=== PATIENT | female | born 1980 | race Caucasian/White ===

== ENCOUNTER 2019-11-07 06:43 | Emergency (ER) | payer BC ==
[~2019-11-07] VITALS: Ht 162.6 cm; Wt 57.2 kg
[2019-11-07 06:52] VITALS: Ht 162.6 cm; Wt 57.2 kg
[2019-11-07 07:56] VITALS: BP 120/85
== END 2019-11-07 07:56 | disposition home or self-care (01) ==
LOC: ED 06:43
DX: F41.9 Anxiety disorder, unspecified (principal); F43.10 Post-traumatic stress disorder, unspecified

== ENCOUNTER 2020-03-28 02:40 | Emergency (ER) | payer BC ==
[~2020-03-28] VITALS: Ht 162.6 cm; Wt 61.2 kg
[2020-03-28 04:21] LABS: CALCIUM 8.9 mg/dL (8.5-10.1); CARBON DIOXIDE 25.6 mmol/L (21-32); CHLORIDE SERUM 104 mmol/L (98-107); CREATININE SERUM 0.7 mg/dL (0.6-1.0); GFR1 > 60 mL/min; GLUCOSE SERUM 92 mg/dL (74-106); POTASSIUM SERUM 3.7 mmol/L (3.5-5.1); SODIUM SERUM 137 mmol/L (136-145)
[2020-03-28 05:27] LABS: AMPHETAMINE QUAL UR NONE DETECTED (See below)
[2020-03-28 05:30] LABS: BASOPHIL % 0.4 % (0-2); PLATELET COUNT 330 x10^3mcL (130-400); RED CELL DISTRIBUTION WIDTH 12.6 % (11.5-14.5)
[2020-03-28 05:51] VITALS: BP 99/60
== END 2020-03-28 05:51 | disposition home or self-care (01) ==
LOC: ED 02:40
PROVIDERS: Emergency Medicine
DX: H93.13 Tinnitus, bilateral (principal); F31.9 Bipolar disorder, unspecified
CPT/HCPCS: 36415; G0480

== ENCOUNTER 2020-05-19 09:38 | Emergency (ER) | payer BC ==
[~2020-05-19] VITALS: Ht 165.1 cm; Wt 63.5 kg
[2020-05-19 09:45] VITALS: Ht 165.1 cm; Wt 63.5 kg
[2020-05-19 10:36] VITALS: BP 130/78
== END 2020-05-19 10:36 | disposition home or self-care (01) ==
LOC: ED 09:38
DX: F41.9 Anxiety disorder, unspecified (principal); R25.1 Tremor, unspecified

== ENCOUNTER 2020-06-15 08:27 | Inpatient (IN) | payer BC ==
[~2020-06-15] VITALS: Ht 165.1 cm; Wt 62.6 kg
--- NOTE | 2020-06-15 08:34 | NUR ---
ARRIVES TO ER BED 5 WITH HX OF ANXIETY. POSSIBLY TOOK FULL BOTTLE OF PROPRANOLOL. THEN GAGGED HERSELF AND VOMITED. TX WITH FELIX IN FIELD BY FIRE DEPARTMENT.
--- NOTE | 2020-06-15 08:40 | NUR ---
VIDAL KNOXABRAN STAMPING DIE TRY OUT WORKER HERE AND SPOKE WITH PT. SUBMITTED 5150 DOCUMENT TO NURSING STAFF AFTER WRITTEN. PT CONTINUES TO BE COOPERATIVE.
[2020-06-15 08:58] LABS: BASOPHIL % 0.8 % (0-2); PLATELET COUNT 288 x10^3mcL (130-400); RED CELL DISTRIBUTION WIDTH 12.9 % (11.5-14.5)
--- NOTE | 2020-06-15 09:16 | NUR ---
SAFETY DATA SHEET NUMBER [id number]
[2020-06-15] MEDS ORDERED: EFF75 PO (09:29)
[2020-06-15] MEDS ORDERED: BUS5 PO (09:30)
--- NOTE | 2020-06-15 09:31 | NUR ---
SPOKE WITH DR. IAIN SINHA (MEDICAL TOXICOLIGIST) AND WAS INFORMED OF SITUATION WITH PT AND THE INGESTION OF PROPRANOLOL. HE ALSO SPOKE WITH DR. DEL ROSARIO.
[2020-06-15 09:33] LABS: CALCIUM 8.9 mg/dL (8.5-10.1); CARBON DIOXIDE 28.3 mmol/L (21-32); CHLORIDE SERUM 103 mmol/L (98-107); CREATININE SERUM 0.7 mg/dL (0.6-1.0); GFR1 > 60 mL/min; GLUCOSE SERUM 104 mg/dL (74-106); SODIUM SERUM 138 mmol/L (136-145)
[2020-06-15 09:37] LABS: ALBUMIN 3.5 g/dL (3.4-5.0); ALKALINE PHOSPHATASE 41 U/L (46-116); ALT/SGPT 69 U/L (14-59); AST/SGOT 32 U/L (15-37); BILIRUBIN TOTAL 0.22 mg/dL (0.20-1.00); TOTAL PROTEIN, SERUM 7.1 g/dL (6.4-8.2)
[2020-06-15 09:44] LABS: UA SPECIFIC GRAVITY <=1.005 (1.005-1.035); microscopic required? YES; urine erythrocyte TRACE (NEGATIVE)
[2020-06-15 09:45] LABS: AMPHETAMINE QUAL UR NONE DETECTED (See below)
--- NOTE | 2020-06-15 10:04 | NUR ---
PT'S MOTHER (EZEQUIEL) PHONE CONTACT:
--- NOTE | 2020-06-15 10:22 | NUR ---
DR. GREENBERG AT BEDSIDE AND MEDICAL STUDENTS AT BEDSIDE, SPEAKING TO PATIENT.
--- NOTE | 2020-06-15 11:05 | NUR ---
WITH CONSENT FROM DR. DEL ROSARIO. PT ATE CRACKERS.
--- NOTE | 2020-06-15 11:30 | NUR ---
AMBULATED TO REST ROOM. VOIDED. GAIT STEADY.
--- NOTE | 2020-06-15 11:50 | NUR ---
PT. ADMITTED FROM ER VIA GURNEY, PT. S/P SUICIDE ATTEMPT ON PROPRANOLOL , STATES THAT SHE SWALLOWED ABOUT 40 TABS ( DOSAGE UNKNOWN) , PT. STATES SHE VOMITED ABOUT 5 TABS, PT. GIVEN ZOFRAN ON ROUTE TO ER VIA FIRE FIGHTERS ACCORDING TO RUI POND IN THE ER, PT. STATES THE ATTEMPT WAS DUE TO ANXIETY AND DEPRESSION CAUSED DUE HER INABILITY TO SEE HER TWIN BOYS, PT. STATES HER EX WHO HAS THE FULL CUSTODY OF CHILDREN FORBIDS HER KIDS FROM SEEING HER. PT. PRESENTS WITH STABLE VITAL SIGNS, NO S/S OF RESPUITORY DEPRESSION, DENIES ANY PAIN AT THE MOMENT, VERY COOPERATIVE AND ABLE TO ANSWER ALL QUESTIONS. WILL RESUME CARE AT THIS POINT
[2020-06-15 12:32] VITALS: BP 99/56
[2020-06-15 12:32] LABS: CHOLESTEROL/HDL RATIO 2.6
[2020-06-15 12:39] VITALS: BP 99/56
[2020-06-15 12:41] LABS: T3 TOTAL 1.12 ng/mL
[2020-06-15 13:00] LABS: FREE T4 1.29 ng/dL (0.76-1.46); FREE THYROXINE INDEX 3.5 ug/dL (1.4-4.5); T4(THYROXINE) 8.9 ug/dL (4.7-13.3)
[2020-06-15 13:33] LABS: CALCIUM 9.3 mg/dL (8.5-10.1); CARBON DIOXIDE 29.7 mmol/L (21-32); CHLORIDE SERUM 104 mmol/L (98-107); CREATININE SERUM 0.7 mg/dL (0.6-1.0); GFR1 > 60 mL/min; GLUCOSE SERUM 100 mg/dL (74-106); POTASSIUM SERUM 4.2 mmol/L (3.5-5.1); SODIUM SERUM 140 mmol/L (136-145)
--- NOTE | 2020-06-15 15:19 | NUR ---
SPOKE TO POISON CONTROL TO GIVE AN UPDATE ON PT. STATUS, VITALS WNL, NSR PT. CALM AND RESTING, PT. COOPERATIVE
[2020-06-15 17:21] LABS: CALCIUM 8.8 mg/dL (8.5-10.1); CARBON DIOXIDE 30.7 mmol/L (21-32); CHLORIDE SERUM 104 mmol/L (98-107); CREATININE SERUM 0.7 mg/dL (0.6-1.0); GFR1 > 60 mL/min; GLUCOSE SERUM 98 mg/dL (74-106); POTASSIUM SERUM 4.1 mmol/L (3.5-5.1); SODIUM SERUM 139 mmol/L (136-145)
--- NOTE | 2020-06-15 17:34 | NUR ---
VITAL BP 114/79, SPO2 89% RR 33 TEMP 97.9 DENIES PAIN
[2020-06-15 18:54] VITALS: Ht 165.1 cm; Wt 62.6 kg
--- NOTE | 2020-06-15 19:00 | NUR ---
RECEIVED REPORT FROM DEJAH CISNEROS. PT IN BED, AAOX4. PERRLA. RASS 0. NO S/S OF CARDIAC OR RESP DISTRESS. SB/NSR ON CARDIAC CONTINUOUS MONITOR. ON ROOM AIR. LUNG SOUNDS CLEAR THROUGHOUT LOBES. AFEBRILE. DENIES ANY PAIN. PULSES PALBABLE. ABLE TO BUCK. ABLE TO MAKE ALL NEEDS KNOWN AT THIS TIME. ABLE TO FOLLOW ALL COMMANDS. CONTINENT OF BOWEL AND BLADDER. BEDSIDE COMMODE PRESENT AT BEDSIDE. SKIN INTACT. CALL LIGHT WITHIN REACH. BED AT LOWEST POSITION. PLACED CLOSE TO NURSING STATION FOR CLOSE OBSERVATION. SAFETY MEASURES AND INTEGRITY MAINTAINED. WILL CONTINUE TO MONITOR.
[2020-06-15 21:09] LABS: CALCIUM 8.6 mg/dL (8.5-10.1); CARBON DIOXIDE 30.2 mmol/L (21-32); CHLORIDE SERUM 104 mmol/L (98-107); CREATININE SERUM 0.7 mg/dL (0.6-1.0); GFR1 > 60 mL/min; GLUCOSE SERUM 108 mg/dL (74-106); POTASSIUM SERUM 3.8 mmol/L (3.5-5.1); SODIUM SERUM 139 mmol/L (136-145)
--- NOTE | 2020-06-16 | NUR ---
PT STABLE. NO CHANGE FROM SHIFT ASSESSMENT. DENIES ANY PAIN AT THIS TIME. PERRLA. AFEBRILE. SLEEPING. SAFETY MEASURES AND INTEGRITY MAINTAINED. CALL LIGHT WITHIN REACH. WILL CONTINUE TO MONITOR.
--- NOTE | 2020-06-16 04:00 | NUR ---
PT STABLE. NO S/S OF DISTRESS. V/S STABLE. DENIES ANY PAIN. NO CHANGE FROM SHIFT ASSESSMENT. CALL LIGHT WITHIN REACH. BED AT LOWEST POSITION. SAFETY MEASURES AND INTEGRITY MAINTAINED. WILL CONTINUE TO MONITOR.
[2020-06-16 05:39] LABS: BASOPHIL % 0.7 % (0-2); PLATELET COUNT 280 x10^3mcL (130-400); RED CELL DISTRIBUTION WIDTH 13.1 % (11.5-14.5)
[2020-06-16 06:07] LABS: ALKALINE PHOSPHATASE 32 U/L (46-116); ALT/SGPT 50 U/L (14-59); AST/SGOT 18 U/L (15-37); BILIRUBIN TOTAL 0.2 mg/dL (0.20-1.00); CALCIUM 8.4 mg/dL (8.5-10.1); CARBON DIOXIDE 29.3 mmol/L (21-32); CHLORIDE SERUM 105 mmol/L (98-107); CREATININE SERUM 0.8 mg/dL (0.6-1.0); GFR1 > 60 mL/min; GLUCOSE SERUM 89 mg/dL (74-106); POTASSIUM SERUM 3.7 mmol/L (3.5-5.1); SODIUM SERUM 140 mmol/L (136-145); TOTAL PROTEIN, SERUM 6.6 g/dL (6.4-8.2)
[2020-06-16 06:09] LABS: ALBUMIN 3.2 g/dL (3.4-5.0)
--- NOTE | 2020-06-16 07:00 | NUR ---
REPORT GIVEN TO DEJAH CISNEROS FOR CONTINUITY OF CARE. LEFT PT IN STABLE CONDITION.
--- NOTE | 2020-06-16 07:15 | NUR ---
RECEIVED REPORT FROM NIGHT NURSE, PT. UNDER NO STRESS, VERY CALM AND COOPERATIVE, VITALS WNL, WILL RESUME PT. CARE
[2020-06-16 09:00] VITALS: BP 118/61
[2020-06-16 12:30] VITALS: BP 112/56
--- NOTE | 2020-06-16 15:12 | NUR ---
PT. FINISHING HER LUNCH, PT. REMAINS CALM, VERY COOPERATIVE, ANSWERS ALL QUESTIONS RELATED TO HER CARE, RIVASS
[2020-06-16 15:15] VITALS: BP 121/63
[2020-06-16 20:00] VITALS: BP 106/53
[2020-06-16 23:40] VITALS: BP 117/66
[2020-06-17] VITALS (14 sets, daily range): BP systolic 95–124; BP diastolic 45–82
--- NOTE | 2020-06-17 06:23 | NUR ---
PT. ALERT, CALM, AND IN BED. NO S/S OF ACUTE RESPIRATORY DISTRESS NOTED. DENIED ANY PAIN AT THIS MOMENT. COOPERATIVE AND ABLE TO ANSWERS ALL QUESTIONS. NO CHANGE FROM INITIAL SHIFT ASSESSMENT. BED AT LOWEST POSITION. CALL LIGHT WITHIN REACH. INTEGRITY MAINTAINED. WILL CONTINUE TO MONITOR.
[2020-06-17 06:29] LABS: BASOPHIL % 0.4 % (0-2); PLATELET COUNT 275 x10^3mcL (130-400); RED CELL DISTRIBUTION WIDTH 12.9 % (11.5-14.5)
[2020-06-17 07:32] LABS: CALCIUM 8.2 mg/dL (8.5-10.1); CARBON DIOXIDE 29.1 mmol/L (21-32); CHLORIDE SERUM 106 mmol/L (98-107); CREATININE SERUM 0.7 mg/dL (0.6-1.0); GFR1 > 60 mL/min; GLUCOSE SERUM 91 mg/dL (74-106); POTASSIUM SERUM 3.9 mmol/L (3.5-5.1); SODIUM SERUM 141 mmol/L (136-145)
--- NOTE | 2020-06-17 08:38 | NUR ---
PAGED DR HUGGINS AT THIS TIME, PATIENT STS THAT SHE HAS A LOT OF ANXIETY. WILL AWAIT CALL BACK AT THIS TIME AND CONTINUE TO MONITOR PATIENT.
--- NOTE | 2020-06-17 08:40 | NUR ---
DR HUGGINS NOTIFIED OF PATIENT ANXIETY WILL CARRY OUT ANY NEW ORDERS, AND INFORM PRIMARY RN.
--- NOTE | 2020-06-17 09:13 | NUR ---
MORNING ROUNDS WITH DR GREENBERG AND RESIDENTS. INFORMED OF PATIENT TRANSFER TO PSYCH FACILITY. PER DR GREENBERG HE IS AWARE, PATIENT NEEDS COVID RESULTS FIRST. WILL INFORM PRIMARY RN.
--- NOTE | 2020-06-17 09:30 | NUR ---
SPOKE WITH PAMELA, CRABBING MACHINE OPERATOR TO VERIFY ID COVID SWAB WAS RECEIVED, SHE STS IT IS NOT RECEIVED AND TO DO RESWAB. WILL INFORM PRIMARY RN AT THIS TIME AND CONTINUE TO MONITOR PATIENT.
--- NOTE | 2020-06-17 10:09 | NUR ---
Called facility and spoke with PJ to confirm intake has been received. Information has been fxed out to the following facilities for bed placement. [facility]/ [facility] Will keep facility updated with any information received
--- NOTE | 2020-06-17 10:11 | NUR ---
PATIENT RESWAB FOR COVID, AND SENT TO LAB AT THIS TIME.
--- NOTE | 2020-06-17 12:44 | NUR ---
PATIENT STS THAT SHE HAS A LOT OF ANXIETY AT THIS TIME. DR HUGGINS PAGED AT THIS TIME REGARDING PRN. PT STABLE AT THIS TIME, WILL CONTINUE TO MONITOR.
--- NOTE | 2020-06-17 14:06 | NUR ---
DR HUGGINS NOTIFIED OF PATIENTS ANXIETY AND PATIENT MEDICATED. PER DR HUGGINS HE WILL SEND OUT NEW ORDERS. WILL CARRY OUT AND INFORME PRIMARY RN.
--- NOTE | 2020-06-17 14:30 | NUR ---
PT VERY EMOTIONAL AND REQUEST FOR MEDS AND RN MIC TEXTED VENEER GRADER FOR PSYCHE MEDS AND PT VERBALIZED SUICIDAL IDEATIONS , PT UNDER CLOSED WATCH/ SURVEILANCE , ROOM CHECK FOR SHARP OBJECTS AND NO WEAPON , DENIES ANY HOMICIDAL IDEATION .
--- NOTE | 2020-06-17 16:45 | NUR ---
PSYCHIATRIST MD MARLON MUNGUIAREES HERE AT DEPT , SEEN AND SPOKE TO PT CONSULT.
--- NOTE | 2020-06-17 17:22 | NUR ---
KELLY FROM [facility] COUSELOR CALLED AT THIS TIME AND STATES THAT SINCE PATIENT HAD A RAPID TEST THAT WAS NEGATIVE AND ASYMPTOMATIC, THEY WILL BE ABLE TO ACCEPT PATIENT AFTER 1900, DUE TO CHANGE OF SHIFT AND PREPARATION FOR PATIENT. WILL NOTIFY DR HUGGINS AT THIS TIME AND CONTINUE TO MONITOR PATIENT.
--- NOTE | 2020-06-17 17:25 | NUR ---
RECEIVED A CALL FROM INTAKE KELLY FORDE FROM [facility] WHO ACCEPT PT DESPITE PT RAPID TEST FOR SARS COVID NEGATIVE AND PENDING [facility] SWAB TESTING [place] TODAY , PT DOES NOT HAVE ANY S/S OF COVID , SBAR REPORT GIVEN AND ACCEPTING MD RON CANNON AND TO MAKE ARRANGEMENT WITH AMBULANCE AFTER 6 PM AND ROOM WILL ASSIGN ONCE PT GOT TO THE FACILITY , INTAKE SPOKE TO ICU DIRECTOR QUALITY ASSURANCEDEJAH HAILE FOR TRANSPORT ARRANGEMENT , PMD NOTIFIED AND RESIDENTIAL APPRAISER PRESENT IN ICU AND MADE AWARE .
--- NOTE | 2020-06-17 17:28 | NUR ---
DR HUGGINS CALLED AT THIS TIME AND INFORMED OF PATIENT ABLE TO TRANSFER. HE STS TO INFORM REPTILE FARMER AT THIS TIME AND CASEMANAGEMENT. WILL INFORM AT THIS TIME.
--- NOTE | 2020-06-17 17:30 | NUR ---
MONTSERRAT MARTINEZPROPERTY MAINTENANCE TECHNICIAN AWARE. WILL START PAPER WORK AT THIS TIME AND CONTINUE TO MONITOR PATIENT.
--- NOTE | 2020-06-17 17:35 | NUR ---
INFORMED DR HUGGINS TO PUT TRANSFER ORDERS FOR PATIENT. WILL CARRY OUT WHEN ORDERED.
--- NOTE | 2020-06-17 18:06 | NUR ---
DISCHARGE INFORMATION DONE AT THIS TIME, PATIENT SIGNED ALL DISCHARGE PAPER WORK, AND PAPER WORK PLACED IN CHART.
--- NOTE | 2020-06-17 20:40 | NUR ---
2000 RECEIVED PT LYING IN BED AWAKE,ALERT, AND ORIENTED X4. MOVES ALL EXT WELL.LUNGS ARE CLEAR BILAT.PULSES PALPABLE. EKG NSR W/ NO ECTOPY.ON RA.AFIBRILE. VITAL SIGNS STABLE. ABDOMEN SOFT W/ ACTIVE BOWEL SOUND. ASKED FOR ANXIETY. ATIVAN 0.5MG GIVEN PO. RESTING QUIETLY IN BED.NO ACUTE DISTRESS NOTED. CALLED THE HOSPITAL FOR REPORT [facility] AND STATED NO MORE REPORT TO BE REPORTED.
--- NOTE | 2020-06-17 21:34 | NUR ---
212 PT DISCHARGED TO [facility] VIA AMBULANCE IN SATISFACTORY CONDITION W/ BELONGING. HEP LOCK DISCONTINUED.
== END 2020-06-17 21:18 | DRG 918 ==
LOC: ED 08:27 → IC 10:19
PROVIDERS: Emergency Medicine; ADMIT Internal Medicine; ATTEND Internal Medicine
DX: T44.7X1A Poisoning by beta-adrenoreceptor antagonists, accidental (unintentional), initial encounter (principal); F33.2 Major depressive disorder, recurrent severe without psychotic features; F31.0 Bipolar disorder, current episode hypomanic; Y92.89 Other specified places as the place of occurrence of the external cause; Z98.891 History of uterine scar from previous surgery; F43.10 Post-traumatic stress disorder, unspecified; Z79.899 Other long term (current) drug therapy; F41.9 Anxiety disorder, unspecified
CPT/HCPCS: 84439; G0378; G0480; J2405; J7030; Q0092; U0003-CS